=== PATIENT | male | born 1995 | race Two or more races ===

== ENCOUNTER 2017-03-23 23:59 | Emergency (ER) | payer OTHER ==
[~2017-03-23] VITALS: Ht 172.7 cm; Wt 72.6 kg
[2017-03-24 00:04] VITALS: BP 133/82
[2017-03-24] MEDS ORDERED: IBUPROFEN 600 MG TAB PO ONE (03:00)
== END 2017-03-24 03:37 | disposition home or self-care (01) ==
LOC: EDBD 23:59 → ER 03-24 00:28
DX: S63.501A Unspecified sprain of right wrist, initial encounter (principal); S30.0XXA Contusion of lower back and pelvis, initial encounter; R51 Headache; Y08.89XA Assault by other specified means, initial encounter; Y93.89 Activity, other specified; Y99.8 Other external cause status; Y92.89 Other specified places as the place of occurrence of the external cause
CPT/HCPCS: 70450; 72100; 73100; 80307